=== PATIENT | male | born 1980 | race Caucasian/White ===

== ENCOUNTER 2023-01-15 17:21 | Emergency (ER) | payer BC ==
[2023-01-15 17:52] LABS: BASOPHILS # (AUTO) 0.1 10^3/uL (0.0-0.1); BASOPHILS % (AUTO) 0.8 %; EOSINOPHILS # (AUTO) 0.4 10^3/uL (0.0-0.7); EOSINOPHILS % (AUTO) 2.7 %; HCT - HEMATOCRIT 45.7 % (42.0-52.0); HGB - HEMOGLOBIN 14.4 g/dL (14.0-18.0); LYMPHOCYTES # (AUTO) 2.4 10^3/uL (1.5-3.5); LYMPHOCYTES % (AUTO) 18.1 %; MEAN CORPUSCULAR HEMOGLOBIN 27.4 pg (27.0-31.0); MEAN CORPUSCULAR HGB CONC 31.5 g/dL (32.0-36.0); MEAN PLATELET VOLUME 10.2 fL (7.4-11.4); MONOCYTES # (AUTO) 0.6 10^3/uL (0.0-1.0); MONOCYTES % (AUTO) 4.8 %; NEUTROPHILS # (AUTO) 9.6 10^3/uL (1.5-6.6); NEUTROPHILS % (AUTO) 73.3 %; PLT - PLATELET COUNT 456 10^3/uL (130-450); RED BLOOD COUNT 5.25 10^6/uL (4.70-6.10); RED CELL DISTRIBUTION WIDTH 13.2 % (12.0-15.0); WHITE BLOOD COUNT 13.1 x10^3/uL (4.8-10.8)
[2023-01-15 17:57] LABS: MUDS CUTOFF CONCENTRATIONS CUTOFF CONC BELOW:
[2023-01-15 18:00] LABS: BILIRUBIN,URINE NEGATIVE (NEGATIVE); GLUCOSE, URINE (UA) NEGATIVE (NEGATIVE); KETONES,URINE (UA) NEGATIVE (NEGATIVE); LEUKOCYTE ESTERASE, URINE NEGATIVE (NEGATIVE); NITRITE,URINE NEGATIVE (NEGATIVE); OCCULT BLOOD,URINE TRACE-INTA (NEGATIVE); PROTEIN,URINE NEGATIVE (NEGATIVE); UROBILINOGEN,URINE 0.2 (NORMAL) E.U./dL (NORMAL)
[2023-01-15 18:03] LABS: CLARITY,URINE CLEAR (CLEAR)
[2023-01-15 18:08] LABS: ACETAMINOPHEN < 10 ug/mL (10-30); ALBUMIN 4.7 g/dL (3.2-5.5); ALBUMIN/GLOBULIN RATIO 1.4 (1.0-2.2); ALKALINE PHOSPHATASE 56 IU/L (42-121); ALT ALANINE AMINOTRANSFERASE 27 IU/L (10-60); AST ASPARTATE AMINOTRANSFERASE 15 IU/L (10-42); BILIRUBIN,TOTAL 0.7 mg/dL (0.2-1.0); BUN - BLOOD UREA NITROGEN 10 mg/dL (6-20); CALCIUM 9.5 mg/dL (8.5-10.3); CARBON DIOXIDE - CO2 25 mmol/L (21-32); CHLORIDE 107 mmol/L (101-111); CREATININE 0.9 mg/dL (0.6-1.2); ETOH - ETHANOL < 5.0 mg/dL; GFR - MDRD 93 (>89); GLUCOSE 105 mg/dL (70-100); LIPASE 40 U/L (22-51); POTASSIUM 3.9 mmol/L (3.5-5.0); SALICYLATE < 6.0 mg/dL; SODIUM 140 mmol/L (135-145)
[2023-01-15 18:11] LABS: AMPHETAMINE SCREEN,URINE NEGATIVE (NEGATIVE); BARBITURATE SCREEN,UR NEGATIVE (NEGATIVE); BENZODIAZEPINES SCREEN, URINE NEGATIVE (NEGATIVE); COCAINE SCREEN URINE NEGATIVE (NEGATIVE); METHADONE SCREEN, URINE NEGATIVE (NEGATIVE); METHAMPHETAMINES SCREEN, URINE NEGATIVE (NEGATIVE); OPIATE SCREEN, URINE NEGATIVE (NEGATIVE); OXYCODONE SCREEN, URINE NEGATIVE (NEGATIVE); PROPOXYPHENE SCREEN, URINE NEGATIVE (NEGATIVE); THC CANNABINOID SCREEN, URINE NEGATIVE (NEGATIVE); TRICYCLIC ANTIDEPRESSANT,URINE NEGATIVE (NEGATIVE)
--- NOTE | 2023-01-15 18:24 | ED Physician Documentation ---
PD HPI MHE - Stated complaint Stated Complaint: MHE - Chief complaint Chief Complaint: MHE - History obtained from History obtained from: Patient - History of Present Illness Primary symptom: Suicidal ideation Pain level max: 0 Pain level now: 0 - Additional information Additional information: Patient is a 43-year-old male who presents to the emergency department stating increasing suicidal ideation and requesting voluntary hospitalization. Patient states that his last hospitalization was 1 week ago at [facility]. He is from [place]. He is currently in an outpatient program at [facility]. He [place] [employer] [place] but when he got to the bridge decided he was not suicidal at that time and called his . She recommended that he come here. He thinks he needs to be admitted to keep himself safe. Patient states his only psychiatric medication currently is lithium. He states he did attempt suicide while in college, but no other suicide attempts PD PAST MEDICAL HISTORY - Allergies Allergies/Adverse Reactions: Allergies Allergy/AdvReac Type Severity Reaction Status Date / Time No Known Drug Allergies Allergy Verified 01/15/23 17:25 PD ED PE NORMAL - Vitals Vital signs reviewed: Yes - General General: Alert and oriented X 3, No acute distress - HEENT HEENT: PERRL, Moist mucous membranes, Pharynx benign - Neck Neck: Supple, no meningeal sign - Cardiac Cardiac: RRR, No murmur, Strong equal pulses - Respiratory Respiratory: No respiratory distress, Clear bilaterally - Abdomen Abdomen: Soft, Non tender, Non distended - Derm Derm: Warm and dry - Extremities Extremities: No edema - Neuro Neuro: Alert and oriented X 3 - Psych Psych: Normal mood, Normal affect Results - Vitals Vitals: Vital Signs - 24 hr 01/15/23 17:25 Temperature 36.5 C Heart Rate 65 Respiratory 18 Rate Blood Pressure 159/89 H O2 Saturation 99 Oxygen O2 Source Room air - Labs Labs: Laboratory Tests 01/15/23 01/15/23 01/15/23 17:35 17:47 17:47 WBC 13.1 H RBC 5.25 Hgb 14.4 Hct 45.7 MCV 87.0 MCH 27.4 MCHC 31.5 L RDW 13.2 Plt Count 456 H MPV 10.2 Neut # (Auto) 9.6 H Lymph # (Auto) 2.4 [place] # (Auto) 0.6 Eos # (Auto) 0.4 Baso # (Auto) 0.1 Absolute Nucleated RBC 0.00 Nucleated RBC % 0.0 Sodium 140 Potassium 3.9 Chloride 107 Carbon Dioxide 25 Anion Gap 8.0 BUN 10 Creatinine 0.9 Estimated GFR (MDRD) 93 Glucose 105 H Calcium 9.5 Total Bilirubin 0.7 AST 15 ALT 27 Alkaline Phosphatase 56 Total Protein 8.0 Albumin 4.7 Globulin 3.3 Albumin/Globulin Ratio 1.4 Lipase 40 TSH Urine Color YELLOW Urine Clarity CLEAR Urine pH 7.0 Ur Specific [place] 1.010 Urine Protein NEGATIVE Urine Glucose (UA) NEGATIVE Urine Ketones NEGATIVE Urine Occult Blood TRACE-INTA Urine Nitrite NEGATIVE Urine Bilirubin NEGATIVE Urine Urobilinogen 0.2 (NORMAL) Ur Leukocyte Esterase NEGATIVE Ur Microscopic Review NOT INDICATED Urine Culture Comments NOT INDICATED Last Dose Date Last Dose Time Salicylates < 6.0 Urine Opiates Screen NEGATIVE Ur Oxycodone Screen NEGATIVE Urine Methadone Screen NEGATIVE Ur Propoxyphene Screen NEGATIVE Acetaminophen < 10 L Ur Barbiturates Screen NEGATIVE Ur Tricyclics Screen NEGATIVE Ur Phencyclidine Scrn NEGATIVE Ur Amphetamine Screen NEGATIVE U Methamphetamines Scrn NEGATIVE U Benzodiazepines Scrn NEGATIVE [place] Urine Cocaine Screen NEGATIVE U Cannabinoids Screen NEGATIVE Ethyl Alcohol < 5.0 SARS-CoV-2 (PCR) 01/15/23 01/15/23 01/15/23 17:47 17:47 18:35 WBC RBC Hgb Hct MCV MCH MCHC RDW Plt Count MPV Neut # (Auto) Lymph # (Auto) [place] # (Auto) Eos # (Auto) Baso # (Auto) Absolute Nucleated RBC Nucleated RBC % Sodium Potassium Chloride Carbon Dioxide Anion Gap BUN Creatinine Estimated GFR (MDRD) Glucose Calcium Total Bilirubin AST ALT Alkaline Phosphatase Total Protein Albumin Globulin Albumin/Globulin Ratio Lipase TSH 1.60 Urine Color Urine Clarity Urine pH Ur Specific [place] Urine Protein Urine Glucose (UA) Urine Ketones Urine Occult Blood Urine Nitrite Urine Bilirubin Urine Urobilinogen Ur Leukocyte Esterase Ur Microscopic Review Urine Culture Comments Last Dose Date Not Reportable Last Dose Time Not Reportable Salicylates Urine Opiates Screen Ur Oxycodone Screen Urine Methadone Screen Ur Propoxyphene Screen Acetaminophen Ur Barbiturates Screen Ur Tricyclics Screen Ur Phencyclidine Scrn Ur Amphetamine Screen U Methamphetamines Scrn U Benzodiazepines Scrn [place] 0.83 Urine Cocaine Screen U Cannabinoids Screen Ethyl Alcohol SARS-CoV-2 (PCR) NOT DETECTED PD Medical Decision Making - ED course Complexity details: reviewed results, re-evaluated patient, considered differential, d/w patient, d/w senior solutions consultant (Dr. Jarquin telepsych) ED course: Patient is medically clear for psychiatric care. Patient will be signed out to the oncoming emergency department physician awaiting placement. The patient takes 50 mg of Seroquel at night, this was continued. He also takes 1500 mg of lithium per day, he has been taking this as a single dose at night, but this should usually be prescribed 3-4 times a day. He has 600 mg tablets and 300 mg tablets. Therefore we will do 600 mg twice a day and 300 mg once a day in an attempt to even out his lithium levels. Telepsychiatry evaluated the patient and recommended voluntary admission. This document was made in part using voice recognition software. While efforts are made to proofread this document, sound alike and grammatical errors may occur. Departure - Departure Clinical Impression: Suicidal ideation Condition: Stable
[2023-01-15 18:53] LABS: LITHIUM 0.83 mmol/L
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
[2023-01-15] MEDS ORDERED: QUEtiapine 25 MG TABLET PO STA (21:26)
[2023-01-15] MEDS ORDERED: LITHIUM 150 MG CAPSULE PO STA (21:48)
[2023-01-16 12:28] VITALS: BP 130/83
== END 2023-01-16 12:32 ==
LOC: ED 17:21
DX: R45.851 Suicidal ideations (principal); F32.A Depression, unspecified; Z20.822 Contact with and (suspected) exposure to COVID-19
CPT/HCPCS: 36415; 80053; 80178; 80306; 80307; 80320; 80329; 81003; 83690; 84443; 85025; 87635; 90834; 99283; 99285; A9270; Q3014; 81001; 87086